=== PATIENT | female | born 1970 | race Caucasian/White ===

== ENCOUNTER 2017-12-24 11:00 | Observation (INO) | payer OTHER ==
[2017-12-24] MEDS ORDERED: SODIUM CHLORIDE 0.9% 1,000 ML IV STA (11:33)
--- NOTE | 2017-12-24 11:36 | ED ---
General Adult HPI - General Chief complaint: Syncope Stated complaint: SYNCOPE Source: patient Mode of arrival: wheelchair Limitations: no limitations - History of Present Illness Initial comments: Dictation was produced using [employer] dictation software. please excuse any grammatical, word or spelling errors. Chief Complaint: 47-year-old female with past medical history of PTSD , depression presents after syncopal episode. History of Present Illness: Patient is a 47-year-old female who was at work today when she had a syncopal episode. 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 She states the next she remembers is that she knows before waking her up. She was told to come to the emergency department for medical evaluation. She is accompanied by daughter. Event occurred approximately 10:30 AM. Patient denies any cardiac history. She denies ever passing out for. Patient states yesterday she felt sick and had total body aches and was in bed all day. Patient states she has not eaten since 2 days ago. Patient denies any other symptoms. The ROS documented in this emergency department record has been reviewed and confirmed by me. Those systems with pertinent positive or negative responses have been documented in the HPI. All other systems are other negative and/or noncontributory. - Related Data Home Medications Medication Instructions Recorded Confirmed ALPRAZolam [Xanax] 0.75 mg PO DAILY 12/24/17 12/24/17 ALPRAZolam [Xanax] 1 mg PO HS 12/24/17 12/24/17 Citalopram Hydrobromide [CeleXA] 40 mg PO DAILY 12/24/17 12/24/17 cloNIDine HCL [Catapres] 0.2 mg PO HS 12/24/17 12/24/17 Allergies Allergy/AdvReac Type Severity Reaction Status Date / Time No Known Allergies Allergy Verified 12/24/17 11:47 Review of Systems ROS Statement: Those systems with pertinent positive or pertinent negative responses have been documented in the HPI. ROS Other: All systems not noted in ROS Statement are negative. Past Medical History Past Medical History: No Reported History History of Any Multi-Drug Resistant Organisms: None Reported Past Surgical History: No Surgical Hx Reported Past Psychological History: Anxiety, Depression, PTSD Smoking Status: Never smoker Past Alcohol Use History: Occasional Past Drug Use History: None Reported General Exam - General Exam Comments Initial Comments: PHYSICAL EXAM: General Impression: Alert and oriented x3, not in acute distress HEENT: Normocephalic atraumatic, extra-ocular movements intact, pupils equal and reactive to light bilaterally, dry mucous membranes Cardiovascular: Heart regular rate and rhythm, S1&S2 audible, no murmurs, rubs or gallops Chest: Lungs clear to auscultation bilaterally, no rhonchi, no wheeze, no rales Abdomen: Bowel sounds present, abdomen soft, non-tender, non-distended, no organomegaly Musculoskeletal: Pulses present and equal in all extremities, no peripheral edema Motor: Power 5/5 bilaterally, no focal deficits noted Neurological: CN II-XII grossly intact, no focal motor or sensory deficits noted Skin: Intact with no visualized rashes Psych: Normal affect and mood Limitations: no limitations Course Vital Signs 12/24/17 12/24/17 12/24/17 11:07 11:20 11:59 Temperature 97.7 F Pulse Rate 80 75 68 Respiratory 16 20 20 Rate Blood Pressure 75/50 116/78 92/56 O2 Sat by Pulse 98 99 99 Oximetry 12/24/17 12/24/17 12/24/17 12:35 13:00 14:00 Temperature Pulse Rate 89 77 67 Respiratory 20 20 20 Rate Blood Pressure 92/56 92/56 101/72 O2 Sat by Pulse 99 99 99 Oximetry 12/24/17 15:00 Temperature Pulse Rate 77 Respiratory 18 Rate Blood Pressure 112/78 O2 Sat by Pulse 99 Oximetry Medical Decision Making - Medical Decision Making ED course: 70-year-old female presents after syncopal episode. Vital signs upon arrival shows blood pressure 75/50. Laboratory evaluation obtained. CBC unremarkable. Metabolic panel shows no acute processes. No gap acidosis. Urinalysis shows 30. There is no clinical suspicion of UTI at this time given that patient does not have a urinary symptoms. Urine culture sent. Chest x- ray shows no acute processes. At this point there is no clear reason for patient's hypotension. There is a possibility that patient's hypotension secondary to Catapres. Patient states she takes Catapres for postemetic stress disorder. Patient does not have a history of hypertension. Patient given intravenous fluids and observed in emergency department for several hours with stable medical condition. She has not been hypotensive except since initial arrival. Given that patient was severely hypertensive initially we will have patient admitted to observation for further medical monitoring. No intervention indicated at this time except for intravenous fluids. EKG interpretation: Ventricular rate 67, normal sinus rhythm, CA interval 152, care is 84, QTC 460. No CA prolongation, no QTC prolongation, no ST or T-wave changes noted. Overall, this EKG is unremarkable - Lab Data Result diagrams: 12/24/17 11:34 12/24/17 11:34 Lab Results 12/24/17 12/24/17 12/24/17 Range/Units 11:34 11:34 14:25 WBC 9.4 (3.8-10.6) k/uL RBC 4.19 (3.80-5.40) m/uL Hgb 13.1 (11.4-16.0) gm/dL Hct 41.2 (34.0-46.0) % MCV 98.4 (80.0-100.0) fL MCH 31.3 (25.0-35.0) pg MCHC 31.8 (31.0-37.0) g/dL RDW 12.9 (11.5-15.5) % Plt Count 183 (150-450) k/uL Neutrophils % 83 % Lymphocytes % 10 % Monocytes % 6 % Eosinophils % 1 % Basophils % 0 % Neutrophils # 7.8 H (1.3-7.7) k/uL Lymphocytes # 0.9 L (1.0-4.8) k/uL Monocytes # 0.5 (0-1.0) k/uL Eosinophils # 0.1 (0-0.7) k/uL Basophils # 0.0 (0-0.2) k/uL Sodium 134 L (137-145) mmol/L Potassium 4.4 (3.5-5.1) mmol/L Chloride 103 (98-107) mmol/L Carbon Dioxide 21 L (22-30) mmol/L Anion Gap 10 mmol/L BUN 23 H (7-17) mg/dL Creatinine 1.06 H (0.52-1.04) mg/dL Est GFR (CKD-EPI)AfAm 73 (>60 ml/min/1.73 sqM) Est GFR (CKD-EPI)NonAf 63 (>60 ml/min/1.73 sqM) Glucose 171 H (74-99) mg/dL Calcium 9.3 (8.4-10.2) mg/dL Magnesium 2.0 (1.6-2.3) mg/dL Urine Color Yellow Urine Appearance Cloudy H (Clear) Urine pH 6.0 (5.0-8.0) Ur Specific [place] 1.009 (1.001-1.035) Urine Protein Trace H (Negative) Urine Glucose (UA) Negative (Negative) Urine Ketones Negative (Negative) Urine Blood Negative (Negative) Urine Nitrite Negative (Negative) Urine Bilirubin Negative (Negative) Urine Urobilinogen <2.0 (<2.0) mg/dL Ur Leukocyte Esterase Trace H (Negative) Urine WBC 10 H (0-5) /hpf Ur Squamous Epith Cells 28 H (0-4) /hpf Amorphous Sediment Rare H (None) /hpf Urine Bacteria Few H (None) /hpf Hyaline Casts 67 H (0-2) /lpf Urine Mucus Many H (None) /hpf Disposition Clinical Impression: Hypotension Disposition: ADMITTED IP TO THIS [facility] Condition: Good Referrals: None,Stated [Primary Care Provider] - 1-2 days Decision Time: 15:13
[2017-12-24 11:54] LABS: Basophils % (A) 0 %; Eosinophils # (A) 0.1 k/uL (0-0.7); Eosinophils % (A) 1 %; HCT 41.2 % (34.0-46.0); HGB 13.1 gm/dL (11.4-16.0); Lymphocytes # (A) 0.9 k/uL (1.0-4.8); Lymphocytes % (A) 10 %; MCH 31.3 pg (25.0-35.0); MCHC 31.8 g/dL (31.0-37.0); MCV 98.4 fL (80.0-100.0); Mean Platelet Volume 6.9; Monocytes # (A) 0.5 k/uL (0-1.0); Monocytes % (A) 6 %; Neutrophils # (A) 7.8 k/uL (1.3-7.7); Neutrophils % (A) 83 %; Platelet Count 183 k/uL (150-450); RBC 4.19 m/uL (3.80-5.40); RDW 12.9 % (11.5-15.5); WBC 9.4 k/uL (3.8-10.6)
--- NOTE | 2017-12-24 12:05 | XR ---
EXAMINATION TYPE: XR chest 2V DATE OF EXAM: 12/24/2017 COMPARISON: 05/10/2010 HISTORY: 47-year-old female with pain TECHNIQUE: AP and lateral views FINDINGS: The cardiomediastinal silhouette, aorta, and pulmonary vasculature are within normal limits. Lungs an d pleural spaces are clear. IMPRESSION: No acute cardiopulmonary process.
[2017-12-24 12:09] LABS: Calcium 9.3 mg/dL (8.4-10.2); Potassium 4.4 mmol/L (3.5-5.1)
[2017-12-24 14:50] LABS: Amorphous Sediment,Urine Rare /hpf; Appearance,Urine Cloudy (Clear); Bacteria,Urine Few /hpf; Bilirubin,Urine Negative (Negative); Blood,Urine Negative (Negative); Color,Urine Yellow; Glucose,Urine (UA) Negative (Negative); Hyaline Casts,Urine 67 /lpf (0-2); Ketones,Urine Negative (Negative); Leukocyte Esterase,Urine Trace (Negative); Mucus,Urine Many /hpf; Nitrite,Urine Negative (Negative); Protein,Urine Trace (Negative); Specific Gravity,Urine 1.009 (1.001-1.035); Squamous Epithelial Cell,Urine 28 /hpf (0-4); Urobilinogen,Urine <2.0 mg/dL (<2.0); WBC,Urine 10 /hpf (0-5)
[2017-12-24] MEDS ORDERED: NALOXONE 0.4 MG/ML 1 ML VIAL IV PRN (15:09)
[2017-12-24] MEDS ORDERED: ACETAMINOPHEN TAB 500 MG TAB PO PRN (15:47)
[2017-12-24] MEDS ORDERED: MELATONIN 3 MG TABLET PO PRN (15:47)
[2017-12-24] MEDS ORDERED: ALPRAZolam 0.25 MG TAB PO PRN (15:47)
[2017-12-24] MEDS: SODIUM CHLORIDE 0.9% 1,000 ML IV SCH (15:59)
--- NOTE | 2017-12-24 18:22 | HP ---
HISTORY AND PHYSICAL DATE OF SERVICE: 12/24/2017 CHIEF COMPLAINT: Syncope. HISTORY OF PRESENT ILLNESS: This 47-year-old woman with a past medical history of anxiety, depression, PTSD being followed by no primary physician in the outpatient setting, was at work. 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 The patient was sitting at her desk. The patient got up to go to the reception manager desk and patient felt dizzy and the patient unconscious for a couple of seconds and the patient taken to [facility] and admitted for further evaluation and treatment. There is no history of any fever, rigors. No headache, loss of consciousness, seizures. The blood pressure was found to be 75/50 on admission but after IV fluids, improved to 160/70. There is no history of fever, rigors. No headache, loss of consciousness, seizures. PAST MEDICAL HISTORY: History of anxiety, depression, PTSD. MEDICATIONS: Prior to admission include home medications are: Catapres 0.2 mg q.h.s., Xanax 1 mg q.h.s., Celexa 40 mg p.o. daily. ALLERGIES: None. FAMILY HISTORY: No history of heart disease or strokes in the family. SOCIAL HISTORY: No history of smoking. No history of alcohol intake. REVIEW OF SYSTEMS: ENT: No diminished hearing or vision. CARDIOVASCULAR: As mentioned. RESPIRATORY: As mentioned earlier. GI: No nausea. : No dysuria NERVOUS SYSTEM: Mentioned earlier. ALLERGIES/IMMUNOLOGY: No asthma or hayfever. MUSCULOSKELETAL: As mentioned earlier. HEMATOLOGY: No history of anemia. ENDOCRINE: No history of diabetes or hypothyroidism. CONSTITUTIONAL: As mentioned. DERMATOLOGY: Negative. RHEUMATOLOGY: Negative. PSYCHIATRY: As mentioned earlier. PHYSICAL EXAM: Patient is alert, oriented x3. The pulse is 89, blood pressure 92/56, respiration 20, temperature 97.7, pulse ox 98% on room air. HEENT: Conjunctivae normal. Oral mucosa moist. Neck is no jugular venous distention. No carotid bruit. No lymph node enlargement. CARDIOVASCULAR: S1, S2 muffled. No S3, no S4. RESPIRATORY: Breath sounds diminished in the bases. No rhonchi. No crackles. ABDOMEN: Soft, nontender. No mass palpable. LEGS: No edema, no swelling. NERVOUS SYSTEM: Higher functions as mentioned. Moves all 4 limbs. No focal motor signs. LYMPHATICS: No lymphadenopathy in the neck, axillae, groin. SKIN: No ulcer, rash, bleeding. LABS: CBC within normal. Sodium 130, potassium 4.4, creatinine is 1.06. UA noted. ASSESSMENT: 1. Hypotension with syncope for evaluation possibly orthostatic and dehydration. 2. Mild acute renal failure possibly prerenal renal failure. 3. Urinary tract infection. 4. Increased random blood sugar. 5. Hyponatremia. 6. Anxiety, depression, posttraumatic stress disorder. RECOMMENDATIONS AND DISCUSSION: Continue current management and symptomatic treatment. I recommend IV fluids. Monitor blood pressure closely. Hold Catapres. Otherwise, I would recommend baseline troponins and full cardiac workup also. Cardiology also will be consulted. Other than that, the prognosis guarded because of multiple complex medical issues. Broad- spectrum IV antibiotics. Repeat blood work tomorrow. Further recommendations to follow. I also recommend the patient to follow up with primary physician closely in the outpatient. MMODL / IJN: [id number] / MTDD
[2017-12-24 18:44] LABS: D-Dimer 3.56 mg/L FEU (<0.60); Prothrombin Time 10.2 sec (9.0-12.0)
[2017-12-24 20:03] VITALS: RESP 16
[2017-12-24] MEDS: HEPARIN SODIUM,PORCINE 5,000 UNIT/ML 1 ML VIAL SQ SCH (20:35)
--- NOTE | 2017-12-24 20:39 | CT ---
EXAMINATION TYPE: CT chest angio for PE DATE OF EXAM: 12/24/2017 COMPARISON: None HISTORY: syncope/elevated D dimer CT DLP: 374 mGycm Automated exposure control for dose reduction was used. CONTRAST: CT Chest for pulmonary embolism performed with with IV Contrast, patient injected with 100 mL of Isov ue 370. FINDINGS: There are 3-D post processed images. The lungs are clear of infiltrate. There is no pleural effusion. There is no pericardial effusion. Heart size is normal. There are no hilar masses. There is no media stinal adenopathy. There is normal contrast opacification of the pulmonary arteries. There are no karen ling defects. Thoracic aorta appears normal. There is no evidence of aneurysm or dissection. Ascendin g aorta measures 3.2 cm. The bony thorax appears intact. IMPRESSION: Normal exam. No evidence of pulmonary embolism.
[2017-12-24] MEDS ORDERED: ALPRAZolam 1 MG TAB PO SCH (21:00)
[2017-12-25] MEDS: SODIUM CHLORIDE 0.9% 1,000 ML IV SCH ×2 (03:44→12:30)
[2017-12-25 07:11] LABS: Basophils % (A) 0 %; Eosinophils # (A) 0.2 k/uL (0-0.7); Eosinophils % (A) 4 %; HCT 37.4 % (34.0-46.0); HGB 12.1 gm/dL (11.4-16.0); Lymphocytes # (A) 1.6 k/uL (1.0-4.8); Lymphocytes % (A) 29 %; MCH 32.2 pg (25.0-35.0); MCHC 32.2 g/dL (31.0-37.0); MCV 99.9 fL (80.0-100.0); Mean Platelet Volume 7.3; Monocytes # (A) 0.4 k/uL (0-1.0); Monocytes % (A) 7 %; Neutrophils # (A) 3.4 k/uL (1.3-7.7); Neutrophils % (A) 59 %; Platelet Count 169 k/uL (150-450); RBC 3.75 m/uL (3.80-5.40); RDW 13.1 % (11.5-15.5); WBC 5.7 k/uL (3.8-10.6)
[2017-12-25 07:20] LABS: Anion Gap 2 mmol/L; Blood Urea Nitrogen 13 mg/dL (7-17); Calcium 8.3 mg/dL (8.4-10.2); Carbon Dioxide 26 mmol/L (22-30); Chloride 111 mmol/L (98-107); Glucose 88 mg/dL (74-99); Potassium 5.1 mmol/L (3.5-5.1); Sodium 139 mmol/L (137-145)
[2017-12-25] MEDS ORDERED: PANTOPRAZOLE 40 MG TABLET PO SCH (07:30)
[2017-12-25] MEDS: HEPARIN SODIUM,PORCINE 5,000 UNIT/ML 1 ML VIAL SQ SCH (08:42)
[2017-12-25] MEDS ORDERED: ALPRAZolam 0.5 MG TAB PO SCH (09:00)
[2017-12-25] MEDS ORDERED: CITALOPRAM HYDROBROMIDE 20 MG TAB PO SCH (09:00)
--- NOTE | 2017-12-25 12:07 | P.CRDCN ---
History of Present Illness History of present illness: Mrs. Castro is a pleasant 47-year-old female past medical history significant for anxiety, depression and PTSD. She denies history of coronary artery disease, hypertension, dyslipidemia or diabetes mellitus. We have been asked to see her in consultation for hypotension and dizziness. She states for the last couple day she hasn't really been eating or drinking normally and had decreased oral intake. She woke up yesterday morning feeling dizzy and light headed. She denies chest pain, shortness of breath, dizziness, nausea, vomiting or diaphoresis. She was able to go to work without difficulty and was carrying on with her day despite feeling light headed. She was sitting at a desk for the first couple of hours and then she had to stand up and walk to the bilingual receptionist desk and noticed again feeling very light headed. She walked to the desk and fell to the floor. She is unsure if there was positive LOC but continued to feel dizzy. Upon arrival blood pressure was75/50. She takes clonidine .2 mg daily at bedtime for sleep purposes and states that she has been on that for over a year without having an issue. EKG reveals sinus mechanism with non-specific T-wave abnormalities noted. Chest xray negative for an acute cardiopulmonary process. CTA negative for PE with normal appearing thoracic aorta. Laboratory data reviewed, hgb 12.1, plt 169, d-dimer 3.56, sodium 139, potassium 5.1, creatinine 0.75 down from 1.06 on admission, magnesium 2.0. Review of Systems At the time of my exam: CONSTITUTIONAL: Denies fever. Denies chills. EYES: Denies blurred vision. Denies vision changes. Denies eye pain. EARS, NOSE, MOUTH & THROAT: Denies headache. Denies sore throat. Denies ear pain. CARDIOVASCULAR: Denies chest pain. Denies shortness of breath. Denies orthopnea. Denies PND. Denies palpitations. RESPIRATORY: Denies cough. GASTROINTESTINAL: Denies abdominal pain. Denies diarrhea. Denies constipation. Denies nausea. Denies vomiting. MUSCULOSKELETAL: Denies myalgias. INTEGUMENTARY: Denies pruitis. Denies rash. NEUROLOGIC: Denies numbness. Denies tingling. Denies weakness. Complains of ongoing dizziness. PSYCHIATRIC: Denies anxiety. Denies depression. ENDOCRINE: Denies fatigue. Denies weight change. Denies polydipsia. Denies polyurina. GENITOURINARY: Denies burning, hematuria or urgency with micturation. HEMATOLOGIC: Denies history of anemia. Denies bleeding. Past Medical History Past Medical History: No Reported History Additional Past Medical History / Comment(s): has a twin sister. hx ofanxiety/ ptsd/depression History of Any Multi-Drug Resistant Organisms: None Reported Past Surgical History: Ablation, Section Additional Past Surgical History / Comment(s): uterine ablation, 2 c-sections Past Anesthesia/Blood Transfusion Reactions: No Reported Reaction Smoking Status: Never smoker - Past Family History Mother Family Medical History: CVA/TIA, Diabetes Mellitus Father Family Medical History: Cancer Additional Family Medical History / Comment(s): mesothelioma Medications and Allergies Home Medications Medication Instructions Recorded Confirmed Type ALPRAZolam [Xanax] 0.75 mg PO DAILY 12/24/17 12/24/17 History ALPRAZolam [Xanax] 1 mg PO HS 12/24/17 12/24/17 History Citalopram Hydrobromide [CeleXA] 40 mg PO DAILY 12/24/17 12/24/17 History cloNIDine HCL [Catapres] 0.2 mg PO HS 12/24/17 12/24/17 History Allergies Allergy/AdvReac Type Severity Reaction Status Date / Time No Known Allergies Allergy Verified 12/24/17 11:47 Physical Exam Vitals: Vital Signs Temp Pulse Pulse Resp BP BP BP 12/25/17 11:41 99.0 F 81 16 105/71 12/25/17 07:44 98.6 F 76 16 95/64 12/25/17 03:39 16 12/25/17 03:20 98.5 F 79 16 12/24/17 23:52 16 12/24/17 23:20 98.3 F 80 16 12/24/17 20:36 12/24/17 20:00 16 12/24/17 19:25 97.8 F 83 16 12/24/17 16:20 98.1 F 89 18 97/65 12/24/17 15:54 98.6 F 73 20 102/68 12/24/17 15:00 77 18 112/78 12/24/17 14:00 67 20 101/72 12/24/17 13:00 77 20 92/56 12/24/17 12:35 89 20 92/56 12/24/17 11:59 68 20 92/56 BP Pulse Ox 12/25/17 11:41 98 12/25/17 07:44 98 12/25/17 03:39 12/25/17 03:20 97/59 97 12/24/17 23:52 12/24/17 23:20 93/57 97 12/24/17 20:36 103/65 12/24/17 20:00 12/24/17 19:25 79/44 98 12/24/17 16:20 92/59 99 12/24/17 15:54 100 12/24/17 15:00 99 12/24/17 14:00 99 12/24/17 13:00 99 12/24/17 12:35 99 12/24/17 11:59 99 Intake and Output 12/24/17 12/25/17 12/25/17 22:59 06:59 14:59 Intake Total 200 Balance 200 Intake: Oral 200 Other: Voiding Method Toilet # Voids 1 1 Weight 56.1 kg Blood pressure 95/64 heart rate 76 afebrile maintaining oxygen saturation on room air GENERAL: This is a 47-year-old female in no apparent distress at the time of my examination. HEENT: Head is atraumatic, normocephalic. Pupils are equal, round. Sclerae anicteric. Conjunctivae are clear. Mucous membranes of the mouth are moist. Neck is supple. There is no jugular venous distention. No carotid bruit is heard. LUNGS: Clear to auscultation no wheezes, rales or rhonchi. No chest wall tenderness is noted on palpation or with deep breathing. HEART: Regular rate and rhythm without murmurs, rubs or gallops. S1 and S2 heard. ABDOMEN: Soft, nontender. Bowel sounds are heard. No organomegaly noted. EXTREMITIES: No evidence of peripheral edema and no calf tenderness noted. VASCULAR: Radial and dorsalis pedis pulses palpated, no evidence of clubbing. NEUROLOGIC: Patient is awake, alert and oriented x3. Results 12/25/17 06:14 12/25/17 06:14 Coagulation 12/24/17 Range/Units 17:59 PT 10.2 (9.0-12.0) sec CBC 18 12/25/17 Range/Units 11:34 06:14 WBC 9.4 5.7 (3.8-10.6) k/uL RBC 4.19 3.75 L (3.80-5.40) m/uL Hgb 13.1 12.1 (11.4-16.0) gm/dL Hct 41.2 37.4 (34.0-46.0) % Plt Count 183 169 (150-450) k/uL Comprehensive Metabolic Panel 12/24/17 12/25/17 Range/Units 11:34 06:14 Sodium 134 L 139 (137-145) mmol/L Potassium 4.4 5.1 (3.5-5.1) mmol/L Chloride 103 111 H (98-107) mmol/L Carbon Dioxide 21 L 26 (22-30) mmol/L BUN 23 H 13 (7-17) mg/dL Creatinine 1.06 H 0.75 (0.52-1.04) mg/dL Glucose 171 H 88 (74-99) mg/dL Calcium 9.3 8.3 L (8.4-10.2) mg/dL Current Medications Generic Name Dose Route Start Last Admin Trade Name Freq PRN Reason Stop Dose Admin Acetaminophen 500 mg 12/24/17 15:47 Tylenol Tab PO Q6HR PRN Fever and/ or MILD Pain Alprazolam 0.25 mg 12/24/17 15:47 12/25/17 08:45 Xanax PO 0.25 mg TID PRN Administration Anxiety Alprazolam 1 mg 12/24/17 21:00 12/24/17 20:36 Xanax PO 1 mg HS FAN Administration Alprazolam 0.75 mg 12/25/17 09:00 12/25/17 08:46 Xanax PO Not Given DAILY FAN Citalopram Hydrobromide 40 mg 12/25/17 09:00 12/25/17 08:46 Celexa PO 40 mg DAILY FAN Administration Heparin Sodium (Porcine) 5,000 unit 12/24/17 21:00 12/25/17 08:42 Heparin SQ Not Given Q12HR FAN Sodium Chloride 1,000 mls @ 100 mls/hr 12/24/17 16:00 12/25/17 03:44 Saline 0.9% IV 100 mls/hr .Q10H FAN Administration Ceftriaxone Sodium 1,000 mg/ 50 mls @ 100 mls/hr 12/24/17 16:00 12/25/17 08: 46 Sodium Chloride IVPB 100 mls/hr Q24HR FAN Administration Melatonin 3 mg 12/24/17 15:47 Melatonin PO HS PRN Insomnia Naloxone HCl 0.2 mg 12/24/17 15:09 Narcan IV Q2M PRN Opioid Reversal Pantoprazole Sodium 40 mg 12/25/17 07:30 12/25/17 08:46 Protonix PO 40 mg [id number] FAN Administration Intake and Output 12/24/17 12/25/17 12/25/17 22:59 06:59 14:59 Intake Total 200 Balance 200 Intake: Oral 200 Other: Voiding Method Toilet # Voids 1 1 Weight 56.1 kg 12/25/17 06:14 12/25/17 06:14 Assessment and Plan Assessment: ASSESSMENT Pre-syncope with evidence of dehydration on admission Hypotension Anxiety/depression/PTSD PLAN Ongoing fluid rehydration. Obtain 2D echocardiogram and doppler study to assess cardiac structure and function. Repeat orthostatic vital signs. If echo is normal she is stable from a cardiac perspective. Thank you kindly for this consultation. Nurse Practitioner note has been reviewed, I agree with a documented findings and plan of care. Patient was seen and examined.
--- NOTE | 2017-12-25 12:22 | ECHOF ---
Referral Reason:hypotension MEASUREMENTS -------- HEIGHT: 157.5 cm WEIGHT: 55.8 kg BP: 97/59 RVIDd: 2.3 cm (< 3.3) IVSd: 0.7 cm (0.6 - 1.1) LVIDd: 4.2 cm (3.9 - 5.3) LVPWd: 0.9 cm (0.6 - 1.1) IVSs: 0.9 cm LVIDs: 3.0 cm LVPWs: 1.3 cm LA Diam: 2.8 cm (2.7 - 3.8) LAESV Index (A-L): 29.18 ml/m Ao Diam: 2.6 cm (2.0 - 3.7) AV Cusp: 1.7 cm (1.5 - 2.6) LA Diam: 3.0 cm (2.7 - 3.8) MV EXCURSION: 16.703 mm (> 18.000) MV EF SLOPE: 87 mm/s (70 - 150) EPSS: 0.3 cm MV E [place]: 0.81 m/s MV DecT: 181 ms MV A [place]: 0.77 m/s MV E/A Ratio: 1.06 RAP: 5.00 mmHg RVSP: 22.41 mmHg FINDINGS -------- Sinus rhythm. This was a technically good study. LV size, wall thickness and systolic function are normal, with an EF greater than 55%. The left eugenia tricular size is normal. The right ventricle is normal in size. The left atrial size is normal. The right atrial size is normal. The aortic valve is trileaflet, and appears structurally normal. No aortic stenosis or regurgitation. Mild mitral regurgitation is present. Mild tricuspid regurgitation present. There is no evidence of pulmonary hypertension. The right v entricular systolic pressure, as measured by Doppler, is 22.41mmHg. There is no pulmonic regurgitation present. The aortic root size is normal. There is no pericardial effusion. CONCLUSIONS -------- 1. LV size, wall thickness and systolic function are normal, with an EF greater than 55%. 2. The left ventricular size is normal. 3. The right ventricle is normal in size. 4. The left atrial size is normal. 5. The right atrial size is normal. 6. The aortic valve is trileaflet, and appears structurally normal. No aortic stenosis or regurgitati on. 7. Mild mitral regurgitation is present. 8. Mild tricuspid regurgitation present. 9. There is no evidence of pulmonary hypertension. 10. The right ventricular systolic pressure, as measured by Doppler, is 22.41mmHg. 11. There is no pulmonic regurgitation present. 12. The aortic root size is normal. 13. There is no pericardial effusion. INSOLE TOE SNIPPING MACHINE OPERATOR: Anisha Naranjo RDCS
[2017-12-25 14:11] VITALS: BP 98/70; PULSE 84; TEMP 98.6
--- NOTE | 2017-12-25 21:29 | DS ---
DISCHARGE SUMMARY FINAL DIAGNOSES: 1. Hypertension and syncope possibly orthostatic hypotension, dehydration. 2. Mild acute renal failure possibly prerenal renal failure. 3. Urinary tract infection. 4. Increased random blood sugar. 5. Hyponatremia. 6. Anxiety, bipolar depression. 7. Posttraumatic stress disorder. DISCHARGE DISPOSITION: The patient will be discharged in stable condition with guarded prognosis. HISTORY: This 47 -year-old woman with a past medical history of multiple medical problems was admitted with hypertension and other medical issues. Patient treated symptomatically. A CTA was negative for any pulmonary embolism. The patient was seen by Cardiology and a 2D echo with Doppler was also done which showed ejection fraction about more than 55%. No acute abnormalities. Cardiology recommended the patient be discharged. On exam, vital signs are stable. Cardiovascular system: S1, S2. Abdomen soft. Nervous system: No focal deficits. DISCHARGE ADVICE AND MEDICATIONS: 1. Diet is cardiac diet. 2. Activity limited until followup. 3. Follow up with primary physician in 1-2 days. MEDICATIONS ARE: 1. Xanax 0.75 mg p.o. daily and 0.1 mg q.h.s. 2. Celexa 40 mg daily. 3. Clonidine 0.2 q.h.s. hold if the systolic less than 100. MMODL / IJN: [id number] /
== END 2017-12-25 16:45 | disposition home or self-care (01) ==
LOC: EC 11:00 → 3OBS 15:10 → INTOOBSV 12-25 11:26 → OBSVTOIN 12-25 11:26 → UNDODISIN 12-25 16:45
PROVIDERS: ADMIT Hospitalist; ATTEND Hospitalist
DX: I95.9 Hypotension, unspecified (principal); N17.9 Acute kidney failure, unspecified; N39.0 Urinary tract infection, site not specified; E87.1 Hypo-osmolality and hyponatremia; E86.0 Dehydration; F31.9 Bipolar disorder, unspecified; F41.9 Anxiety disorder, unspecified; R73.09 Other abnormal glucose; F43.10 Post-traumatic stress disorder, unspecified; Z79.899 Other long term (current) drug therapy; Z81.8 Family history of other mental and behavioral disorders; Z83.3 Family history of diabetes mellitus; Z82.3 Family history of stroke; Z80.8 Family history of malignant neoplasm of other organs or systems
CPT/HCPCS: 96365; 96366; 96361; 99285; 36415; 93306; 85379; 80048 ×2; 83735; 85025 ×2; 85610; 81001; 87040; 87086; 71046; 71275; G0378 ×3; J0696 ×2; Q9967; 96360

== ENCOUNTER 2017-12-27 13:07 | Emergency (ER) | payer OTHER ==
[2017-12-27] MEDS ORDERED: SODIUM CHLORIDE 0.9% 1,000 ML IV STA (13:16)
[2017-12-27] MEDS ORDERED: LORazepam 2 MG/ML INJ IV STA (13:16)
--- NOTE | 2017-12-27 13:20 | ED ---
General Adult HPI - General Chief complaint: Seizure Stated complaint: Seizure Time Seen by Provider: 12/27/17 13:10 Source: patient, EMS, RN notes reviewed Mode of arrival: EMS Limitations: no limitations - History of Present Illness Initial comments: Patient is a pleasant 47-year-old female presenting to the emergency department following reported seizure. Incident occurred prior to arrival. Patient states she was walking with her daughter and fell. Patient states she does not really member the episode. EMS did report seizure activity was visualized by bystander. Patient states she feels a little bit foggy and has mild discomfort near her right eyebrow otherwise has no complaints. Patient originally denies significant alcohol use then later states she used to drink somewhat frequently and stopped a couple of weeks ago. Patient states she had an episode of syncope approximately one week ago and her blood pressure was low when she was evaluated. Patient states since that time she has discontinued her Xanax. No chest pain or dyspnea. No weakness. No history of previous seizure. - Related Data Home Medications Medication Instructions Recorded Confirmed Citalopram Hydrobromide [CeleXA] 40 mg PO DAILY 12/24/17 12/27/17 busPIRone HCl [Buspar] 10 mg PO BID 12/27/17 12/27/17 Previous Rx's Medication Instructions Recorded ALPRAZolam [Xanax] 0.5 mg PO Q8HR PRN #8 tablet 12/27/17 Allergies Allergy/AdvReac Type Severity Reaction Status Date / Time No Known Allergies Allergy Verified 12/27/17 13:44 Review of Systems ROS Statement: Those systems with pertinent positive or pertinent negative responses have been documented in the HPI. ROS Other: All systems not noted in ROS Statement are negative. Constitutional: Denies: fever Eyes: Denies: eye pain ENT: Denies: ear pain Respiratory: Denies: cough Cardiovascular: Denies: chest pain Endocrine: Denies: fatigue Gastrointestinal: Denies: abdominal pain Genitourinary: Denies: dysuria Musculoskeletal: Denies: back pain Skin: Denies: rash Neurological: Denies: weakness Past Medical History Past Medical History: No Reported History Additional Past Medical History / Comment(s): has a twin sister. hx of anxiety/ ptsd/depression History of Any Multi-Drug Resistant Organisms: None Reported Past Surgical History: Ablation, Section Additional Past Surgical History / Comment(s): uterine ablation, 2 c-sections Past Anesthesia/Blood Transfusion Reactions: No Reported Reaction Past Psychological History: Anxiety, Depression, PTSD Smoking Status: Never smoker Past Alcohol Use History: None Reported Past Drug Use History: None Reported - Past Family History Mother Family Medical History: CVA/TIA, Diabetes Mellitus Father Family Medical History: Cancer Additional Family Medical History / Comment(s): mesothelioma General Exam Limitations: no limitations General appearance: alert, in no apparent distress Head exam: Present: other (2 lacerations to the right eyebrow) Eye exam: Present: normal appearance, PERRL, EOMI. Absent: nystagmus ENT exam: Present: normal oropharynx Neck exam: Present: normal inspection, full ROM. Absent: tenderness Respiratory exam: Present: normal lung sounds bilaterally Cardiovascular Exam: Present: regular rate, normal rhythm GI/Abdominal exam: Present: soft. Absent: tenderness Extremities exam: Present: normal inspection, full ROM. Absent: tenderness Back exam: Present: normal inspection. Absent: vertebral tenderness Neurological exam: Present: alert, oriented X3, CN II-XII intact. Absent: motor sensory deficit Expanded Neurological exam: Present: protecting the airway Patient oriented to: Present: person, place, time Speech: Present: fluid speech Cranial nerves: EOM's Intact: Normal, Facial Sensation: Normal Cerebellar function: Finger to Nose: Normal Sensory exam: Upper Extremity Light Touch: Normal, Lower Extremity Light Touch: Normal Motor strength exam: RUE: 5, LUE: 5, RLE: 5, LLE: 5 Eye Response: (4) open spontaneously Motor Response: (6) obeys commands Verbal Response: (5) oriented Psychiatric exam: Present: normal affect, normal mood Skin exam: Present: normal color Course Vital Signs 12/27/17 12/27/17 13:09 15:00 Temperature 99 F Pulse Rate 118 H 98 Respiratory 18 16 Rate Blood Pressure 123/81 114/76 O2 Sat by Pulse 97 98 Oximetry EKG Findings - EKG Comments: EKG Findings:: Normal sinus rhythm 98. KS 146. QRS 78. QT 390. QTC 497. Normal axis. Normal QRS. No acute ST change. Procedures - Laceration Laceration #1 Consent Obtained: verbal consent Time Out Performed: Yes Indication: laceration Site: face (Right eyebrow) Size (cm): 2 Description: linear Depth: simple, single layer Pre-repair: irrigated extensively Type of Sutures: other (Closed with Dermabond) Patient Tolerated Procedure: well, no complications Laceration #2 Consent Obtained: verbal consent Time Out Performed: Yes Indication: laceration Site: face (Right upper eyelid) Description: linear Pre-repair: irrigated extensively Type of Sutures: other (Closed with Dermabond) Patient Tolerated Procedure: well, no complications Medical Decision Making - Medical Decision Making Patient reevaluated and resting comfortably in bed without any complaints. Patient states she is out of her Xanax. Patient states she was on 0.25 mg 3 times daily. Patient is advised not to miss her medication. Patient is recommended close follow-up with her primary care physician and to likely gently wean off the medication. Patient is warned of risks regarding sudden discontinuation of Xanax or alcohol and risk for associated seizures. Patient states she does have an appointment with her doctor Friday. - Lab Data Result diagrams: 12/27/17 13:15 12/27/17 13:15 Lab Results 12/27/17 12/27/17 Range/Units 13:15 13:15 WBC 5.0 (3.8-10.6) k/uL RBC 3.89 (3.80-5.40) m/uL Hgb 12.4 (11.4-16.0) gm/dL Hct 37.6 (34.0-46.0) % MCV 96.6 (80.0-100.0) fL MCH 32.0 (25.0-35.0) pg MCHC 33.1 (31.0-37.0) g/dL RDW 12.9 (11.5-15.5) % Plt Count 216 (150-450) k/uL Neutrophils % 77 % Lymphocytes % 14 % Monocytes % 5 % Eosinophils % 2 % Basophils % 0 % Neutrophils # 3.8 (1.3-7.7) k/uL Lymphocytes # 0.7 L (1.0-4.8) k/uL Monocytes # 0.3 (0-1.0) k/uL Eosinophils # 0.1 (0-0.7) k/uL Basophils # 0.0 (0-0.2) k/uL Sodium 143 (137-145) mmol/L Potassium 3.9 (3.5-5.1) mmol/L Chloride 110 H (98-107) mmol/L Carbon Dioxide 23 (22-30) mmol/L Anion Gap 10 mmol/L BUN 4 L (7-17) mg/dL Creatinine 0.66 (0.52-1.04) mg/dL Est GFR (CKD-EPI)AfAm >90 (>60 ml/min/1.73 sqM) Est GFR (CKD-EPI)NonAf >90 (>60 ml/min/1.73 sqM) Glucose 117 H (74-99) mg/dL Calcium 9.5 (8.4-10.2) mg/dL Magnesium 1.9 (1.6-2.3) mg/dL Total Bilirubin 0.7 (0.2-1.3) mg/dL AST 133 H (14-36) U/L ALT 65 H (9-52) U/L Alkaline Phosphatase 37 L (38-126) U/L Total Protein 7.1 (6.3-8.2) g/dL Albumin 4.3 (3.5-5.0) g/dL Serum Alcohol <10 mg/dL - Radiology Data Radiology results: report reviewed (Computed tomography scan the brain reveals no acute abnormality.) Disposition Clinical Impression: New onset seizure Disposition: HOME SELF-CARE Condition: Stable Instructions: New-Onset Seizure in Adults (ED), Alcohol Withdrawal (ED) Additional Instructions: Do not suddenly discontinue Xanax or other benzodiazepine. Prescription provided. Please follow-up to Friday or no later than her scheduled appointment on Friday. Consider gradual weaning from Xanax. There is also risk for suddenly discontinuing alcohol and associated seizures. Return for recurrent seizures, confusion, increased pain, worsening or changing symptoms or other concerns. Prescriptions: ALPRAZolam [Xanax] 0.5 mg PO Q8HR PRN #8 tablet PRN Reason: Anxiety Is patient prescribed a controlled substance at d/c from ED?: Yes When asked, does pt state using other controlled substances?: No If prescribed controlled substance>3 days was MAPS reviewed?: Prescribed <3 Days Referrals: My Stroud MD [Primary Care Provider] - 1-2 days Time of Disposition: 15:50
[2017-12-27 13:32] LABS: Basophils % (A) 0 %; Eosinophils # (A) 0.1 k/uL (0-0.7); Eosinophils % (A) 2 %; HCT 37.6 % (34.0-46.0); HGB 12.4 gm/dL (11.4-16.0); Lymphocytes # (A) 0.7 k/uL (1.0-4.8); Lymphocytes % (A) 14 %; MCHC 33.1 g/dL (31.0-37.0); MCV 96.6 fL (80.0-100.0); Mean Platelet Volume 7.1; Monocytes # (A) 0.3 k/uL (0-1.0); Monocytes % (A) 5 %; Neutrophils # (A) 3.8 k/uL (1.3-7.7); Neutrophils % (A) 77 %; Platelet Count 216 k/uL (150-450); RBC 3.89 m/uL (3.80-5.40); RDW 12.9 % (11.5-15.5)
[2017-12-27 13:43] LABS: ALT 65 U/L (9-52); AST 133 U/L (14-36); Albumin 4.3 g/dL (3.5-5.0); Alcohol <10 mg/dL; Alkaline Phosphatase 37 U/L (38-126); Anion Gap 10 mmol/L; Blood Urea Nitrogen 4 mg/dL (7-17); Calcium 9.5 mg/dL (8.4-10.2); Carbon Dioxide 23 mmol/L (22-30); Chloride 110 mmol/L (98-107); Glucose 117 mg/dL (74-99); Magnesium 1.9 mg/dL (1.6-2.3); Potassium 3.9 mmol/L (3.5-5.1); Sodium 143 mmol/L (137-145); Total Bilirubin 0.7 mg/dL (0.2-1.3); Total Protein 7.1 g/dL (6.3-8.2)
--- NOTE | 2017-12-27 14:16 | CT ---
EXAMINATION TYPE: CT brain wo con DATE OF EXAM: 12/27/2017 COMPARISON: 05/07/2010 HISTORY: Possible seizure, laceration to Rt side of head. CT DLP: 1076 mGycm. Automated Exposure Control for Dose Reduction was Utilized. TECHNIQUE: CT scan of the head is performed without contrast. FINDINGS: Ventricles of normal size. There is no mass effect nor midline shift. There is no sign of intracranial hemorrhage. Calvarium is intact. IMPRESSION: Normal head CT scan. No change.
[2017-12-27] MEDS ORDERED: TOPICAL SKIN ADHESIVE 1 EACH AMP TOPICAL ONE ×2 (14:50→15:11)
[2017-12-27 15:04] VITALS: RESP 16
[2017-12-27] MEDS ORDERED: ALPRAZolam 0.25 MG TAB PO STA (15:50)
[2017-12-27 16:06] VITALS: BP 112/75; PULSE 99; TEMP 98.6
== END 2017-12-27 16:06 | disposition home or self-care (01) ==
LOC: EC 13:07
DX: S01.111A Laceration without foreign body of right eyelid and periocular area, initial encounter (principal); R56.9 Unspecified convulsions; R55 Syncope and collapse; F32.9 Major depressive disorder, single episode, unspecified; F43.10 Post-traumatic stress disorder, unspecified; F41.9 Anxiety disorder, unspecified; Z79.899 Other long term (current) drug therapy; W18.00XA Striking against unspecified object with subsequent fall, initial encounter
CPT/HCPCS: 36415; 93005; 80053; 83735; 85025; 80320; 70450; 99285; 12011; 96374; 96361; J2060

== ENCOUNTER → 2018-05-12 | Outpatient (CLI) | payer OTHER ==
--- NOTE | 2018-05-14 09:25 | MM ---
Reason for exam: screening (asymptomatic). Last mammogram was performed 6 years and 1 month ago. History: Reductions of both breasts, 2006. MG Screening Mammo w CAD Bilateral CC and MLO view(s) were taken. Prior study comparison: April 02, 2012, CAD bilateral diagnostic mammogram. July 02, 2005, CAD bilateral diagnostic mammogram. The breast tissue is extremely dense which could obscure a lesion on mammography. Chronic nodularity right breast. No significant changes when compared with prior studies. ASSESSMENT: Benign, BI-RAD 2 RECOMMENDATION: Routine screening mammogram of both breasts in 1 year.
== END | disposition home or self-care (01) ==
LOC: RADMAMWWP 09:10
PROVIDERS: ATTEND Family Medicine
DX: Z12.31 Encounter for screening mammogram for malignant neoplasm of breast (principal)
CPT/HCPCS: 77067

== ENCOUNTER → 2022-07-31 | Outpatient (CLI) | payer SELFPAY ==
--- NOTE | 2022-07-31 12:09 | MM ---
Reason for Exam: Screening (asymptomatic). Last mammogram was performed 4 year(s) and 3 month(s) ago. Patient History: Menarche at age 14. First Full-Term at age 21. 2006, Bilateral Reduction. Risk Values: Mena 5 year model risk: 0.8%. NCI Lifetime model risk: 7.2%. Prior Study Comparison: 07/02/2005 Bilateral Diagnostic Mammogram, [facility]. 04/02/2012 Bilateral Diagnostic Mammogram, [facility]. 05/12/2018 Bilateral Screening Mammogram, [facility]. Tissue Density: The breast tissue is heterogeneously dense. This may lower the sensitivity of mammography. Findings: Analyzed By CAD. There is no suspicious group of microcalcifications or new suspicious mass in either breast. Benign round calcification within the right breast. Overall Assessment: Benign, BI-RAD 2 Management: Screening Mammogram of both breasts in 1 year. A clinical breast exam by your physician is recommended on an annual basis and results should be correlated with mammographic findings. Electronically signed and approved by: Hakeem Finnegan D.O.
== END | disposition home or self-care (01) ==
LOC: RADMAMWWP 10:23
PROVIDERS: ATTEND Family Medicine
DX: Z12.31 Encounter for screening mammogram for malignant neoplasm of breast (principal)
CPT/HCPCS: 77067